=== PATIENT | female | born 1990 | race Two or more races ===

== ENCOUNTER 2022-09-22 23:07 | Emergency (ER) | payer MEDICAID ==
[~2022-09-22] VITALS: Ht 160 cm; Wt 61.0 kg
[2022-09-23 00:39] LABS: BASOPHILS # (AUTO) 0.1 X10'3 (0-0.2); BASOPHILS % (AUTO) 0.5 % (0-1); EOSINOPHILS % (AUTO) 0 % (0-6); HEMATOCRIT 43.5 % (35.0-45.0); HEMOGLOBIN 14.5 g/dl (12.0-16.0); LYMPHOCYTES # (AUTO) 0.2 X10'3 (1.1-4.8); LYMPHOCYTES % (AUTO) 1.1 % (21-51); MEAN CORPUSCULAR HEMOGLOBIN 29.7 PG (27.0-31.0); MEAN CORPUSCULAR HGB CONC 33.4 g/dL (33.0-36.5); MEAN PLATELET VOLUME 7.3 FL (7.4-10.4); MONOCYTES # (AUTO) 0.4 X10'3 (0-0.9); NEUTROPHILS # (AUTO) 18.6 X10'3 (1.8-7.7); NEUTROPHILS % (AUTO) 96.4 % (42-75); PLATELET COUNT 247 X10'3 (140-440); RED BLOOD COUNT 4.89 X10'6 (4.20-5.60); WHITE BLOOD COUNT 19.3 X10'3 (4.5-11.0)
[2022-09-23 00:47] LABS: CLARITY,URINE TURBID (Clear); COLOR,URINE YELLOW (Yellow); GLUCOSE, URINE NEGATIVE (Neg); KETONES,URINE 15 mg/dl (Neg); LEUKOCYTE ESTERASE ,URINE NEGATIVE (Neg); NITRITES, URINE NEGATIVE (Neg); OCCULT BLOOD,URINE SMALL (Neg); PROTEIN,URINE 100 mg/dl (Neg); UROBILINOGEN,URINE 0.2 E.U/dL (0.2-1.0)
[2022-09-23 00:53] LABS: URINE HCG POSITIVE (NEG)
[2022-09-23 01:00] LABS: ALANINE AMINOTRANSFERASE 52 U/L (12-78); ALBUMIN 4.1 G/DL (3.4-5.0); ALBUMIN/GLOBULIN RATIO 1.1 (1.1-1.5); ALKALINE PHOSPHATASE 59 IU/L (46-116); ANION GAP 15 (8-16); ASPARTATE AMINO TRANSFERASE 58 U/L (10-37); BILIRUBIN,TOTAL 0.6 MG/DL (0.1-1.0); BLOOD UREA NITROGEN 12 MG/DL (7-18); BUN/CREATININE RATIO 10.8 (10.0-20.0); CALCIUM 8.5 MG/DL (8.5-10.1); CHLORIDE 97 MMOL/L (99-107); CREATININE 1.11 MG/DL (0.40-0.90); GLUCOSE 160 MG/DL (70-104); POTASSIUM 3.4 MMOL/L (3.5-5.1); SODIUM 134 MMOL/L (135-145); TOTAL CARBON DIOXIDE 21.9 MMOL/L (24-32); TOTAL PROTEIN 7.9 G/DL (6.4-8.2); eGFR 58 ML/MIN
[2022-09-23 01:02] LABS: UA COLLECTION TYPE CLN CATCH MIDSTREAM
[2022-09-23 01:03] LABS: MUCUS STRANDS MANY /LPF (Neg); SQUAMOUS EPITHELIAL CELL,UR MANY /LPF (FEW)
[2022-09-23 01:04] LABS: BACTERIA,URINE 4+ /HPF (Neg)
[2022-09-23 01:07] LABS: RBC,URINE 0-2 /HPF (0-2)
[2022-09-23] MEDS ORDERED: normal saline 1000ML IV soln IVB ONE ×2 (01:25→03:50)
[2022-09-23] MEDS ORDERED: metoclopramide 5 mg/ml inj IV ONE (01:55)
[2022-09-23 02:17] LABS: BETA HCG,QUANTITATIVE 29058 mIU/ml
[2022-09-23] MEDS ORDERED: CEPH-585 PO (03:28)
[2022-09-23 04:09] LABS: TOTAL CELLS COUNTED 100
[2022-09-23 04:10] LABS: PLATELET ESTIMATE NORMAL; TOXIC GRANULATION 1+; TOXIC VACUOLATION FEW
[2022-09-23 04:42] VITALS: BP 108/64
== END 2022-09-23 04:43 | disposition home or self-care (01) ==
LOC: ER 23:08
DX: O26.891 Other specified pregnancy related conditions, first trimester (principal); R55 Syncope and collapse; R19.7 Diarrhea, unspecified; R11.2 Nausea with vomiting, unspecified; N39.0 Urinary tract infection, site not specified; Z3A.01 Less than 8 weeks gestation of pregnancy
CPT/HCPCS: 36415; 76801; 80053; 81001; 81025; 84702; 85007; 85025; 86900; 86901; 93005; 96361; 96374; 99285; J2765; J7030